=== PATIENT | female | born 1985 | race Caucasian/White ===

== ENCOUNTER → 2017-12-22 | Emergency (ER) | payer MEDICAID ==
[~2017-12-22] VITALS: Ht 160 cm; Wt 80.9 kg
[~2017-12-22] MED LIST: AMOX-422 PO; CLIN-26 PO; HYDR-565 PO; NABU500T2 PO; amox tr/potassium clavulanate 875/125mg TAB PO ONE
[2017-12-22 07:34] VITALS: BP 117/88
== END | disposition home or self-care (01) ==
LOC: ER 07:32
DX: K02.9 Dental caries, unspecified (principal); F12.10 Cannabis abuse, uncomplicated; F17.200 Nicotine dependence, unspecified, uncomplicated
CPT/HCPCS: 99283

== ENCOUNTER 2019-01-22 08:36 | Emergency (ER) | payer MEDICAID ==
[~2019-01-22] VITALS: Ht 160 cm; Wt 81.8 kg
[~2019-01-22 08:36] MED LIST changes: -AMOX-422 PO; -HYDR-565 PO; -amox tr/potassium clavulanate 875/125mg TAB PO ONE
[2019-01-22 08:42] VITALS: BP 124/74
[2019-01-22] MEDS ORDERED: FLUC150T66 PO (08:54)
[2019-01-22] MEDS ORDERED: CLIN150C2 PO (08:54)
== END 2019-01-22 09:11 | disposition home or self-care (01) ==
LOC: ER 08:36
DX: K08.89 Other specified disorders of teeth and supporting structures (principal); Z79.2 Long term (current) use of antibiotics; Z79.899 Other long term (current) drug therapy; Z98.890 Other specified postprocedural states
CPT/HCPCS: 99283

== ENCOUNTER 2022-01-05 04:36 | Emergency (ER) | payer MEDICAID ==
[~2022-01-05] VITALS: Ht 160 cm; Wt 82.6 kg
[~2022-01-05 04:36] MED LIST changes: +NABU-139 PO; -NABU500T2 PO
[2022-01-05 05:06] VITALS: BP 115/76
[2022-01-05] MEDS ORDERED: HYDROcodone/acetaminophen 10/325mg tab PO ONE (07:40)
[2022-01-05] MEDS ORDERED: HYDR-3973 PO ×4 (07:46→09:38)
== END 2022-01-05 08:10 | disposition home or self-care (01) ==
LOC: ER 04:36
DX: M79.645 Pain in left finger(s) (principal); M25.442 Effusion, left hand
CPT/HCPCS: 29125; 73130; 99283

== ENCOUNTER 2023-11-06 10:30 | Outpatient (CLI) | payer MEDICAID ==
[~2023-11-06 10:30] MED LIST changes: +HYDR-3973 PO
== END 2023-11-06 23:59 | disposition home or self-care (01) ==
LOC: RAD 10:30
PROVIDERS: ATTEND Physician Assistant Surgical
DX: M85.641 Other cyst of bone, right hand (principal); M79.641 Pain in right hand; M25.531 Pain in right wrist; M79.89 Other specified soft tissue disorders
CPT/HCPCS: 73200

== ENCOUNTER 2024-07-21 13:55 | Outpatient (CLI) | payer MEDICAID | END 2024-07-21 23:59 | disposition home or self-care (01) | LOC: RAD 13:55 | PROVIDERS: ATTEND Family Medicine Addiction Medicine | DX: O26.841 Uterine size-date discrepancy, first trimester (principal); Z3A.00 Weeks of gestation of pregnancy not specified | CPT/HCPCS: 36415; 76801; 76830; 84702 ==

== ENCOUNTER 2024-07-23 09:22 | Outpatient (CLI) | payer MEDICAID | END 2024-07-23 23:59 | disposition home or self-care (01) | LOC: RAD 09:22 | PROVIDERS: ATTEND Family Medicine Addiction Medicine | DX: Z34.00 Encounter for supervision of normal first pregnancy, unspecified trimester (principal); Z3A.00 Weeks of gestation of pregnancy not specified | CPT/HCPCS: 36415; 84702 ==